=== PATIENT | female | born 1945 | race Caucasian/White ===

== ENCOUNTER → 2023-06-20 09:52 | Outpatient (REF) | payer OTHER, SELFPAY | LOC: HWRAD 09:52 | PROVIDERS: ATTENDING PHYSICIAN Internal Medicine Rheumatology; FAMILY PHYSICIAN Family Medicine | DX: M81.0 Age-related osteoporosis without current pathological fracture (principal); M06.09 Rheumatoid arthritis without rheumatoid factor, multiple sites | CPT/HCPCS: 73100; 73120; 77080; 77081 ==

== ENCOUNTER → 2024-11-21 14:21 | Outpatient (REF) | payer OTHER, SELFPAY | LOC: RCS 14:21 | PROVIDERS: ATTENDING PHYSICIAN Internal Medicine Cardiovascular Disease; FAMILY PHYSICIAN Family Medicine | DX: R06.09 Other forms of dyspnea (principal) | CPT/HCPCS: 93306 ==